=== PATIENT | male | born 1990 | race Two or more races ===

== ENCOUNTER 2020-01-31 12:46 | Emergency (ER) | payer SELFPAY ==
[~2020-01-31] VITALS: Ht 170.2 cm; Wt 100.2 kg
[2020-01-31] MEDS ORDERED: IBUPROFEN 600 MG TABLET PO ONE ×2 (13:30)
--- NOTE | 2020-01-31 14:24 | NUR ---
Patient DC home instruction agrees to see PMD in AM he declined group home and signed the form patient able to ambulated non distress
--- NOTE | 2020-01-31 14:41 | NUR ---
Iram wallace alert Rt leg edda ivy done and demonstrated by Reinier patient agrees to see PMD in 2 days
[2020-01-31 14:45] VITALS: BP 133/67
== END 2020-01-31 14:47 | disposition home or self-care (01) ==
LOC: ER 12:49
DX: S92.211A Displaced fracture of cuboid bone of right foot, initial encounter for closed fracture (principal); S90.32XA Contusion of left foot, initial encounter; F17.200 Nicotine dependence, unspecified, uncomplicated; Z60.2 Problems related to living alone; W17.89XA Other fall from one level to another, initial encounter; Y93.39 Activity, other involving climbing, rappelling and jumping off; Y92.89 Other specified places as the place of occurrence of the external cause; Y99.8 Other external cause status
CPT/HCPCS: 73610-TC; 73630-TC